=== PATIENT | male | born 1990 | race Caucasian/White ===

== ENCOUNTER 2016-08-11 11:00 | Inpatient (IN) | payer OTHER ==
--- NOTE | ~2016-08-11 | HP ---
Unit #: [id number] #: [id number] Patient: LETI LÓPEZ [id number] [place] [address] [id number] MR#: [id number] NAME: LETI LÓPEZ ROOM: P209 Age: 25 Sex: M Admission Date: 08/11/2016 : 1990 Attending Physician: Jamari Platt M.D. Admitting Physician: Jamari Platt M.D. Primary Care Physician: Primary Care Physician No HISTORY AND PHYSICAL HISTORY OF PRESENT ILLNESS Leti is a 25 year old admitted to [address] [place] [address] because of his drug use which includes methamphetamine. 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 PAST SURGICAL HISTORY Thyroglossal cyst resected at 1 years old. ALLERGIES Penicillin, Keflex. SOCIAL HISTORY He smokes 1 pack per day. Denies alcohol. Admits to a history of illicit substance abuse to include methamphetamine. FAMILY HISTORY Medically noncontributory. REVIEW OF SYSTEMS CONSTITUTIONAL: No fever or chills. HEENT: Denies any sore throat, ear pain or runny nose. CARDIOVASCULAR: Denies chest pain, irregular heart rhythm or palpitations. CHEST: Denies shortness of breath or cough. No hemoptysis. GASTROINTESTINAL: Denies nausea, vomiting, diarrhea or chronic constipation. ENDOCRINE: Denies history of increased thirst or urination. No recent significant weight loss or gain. GENITOURINARY: Denies dysuria, frequency, or hematuria. SKIN: Denies any rashes. HEMATOLOGIC: Denies history of increased bleeding or bruising. MUSCULOSKELETAL: Denies any hot, swollen joints. No generalized muscle pain. NEUROLOGIC: Denies problems with vision or speech. No frequent, severe headaches. No numbness, tingling or weakness in any extremities. Denies loss of bladder or bowel control. CURRENT MEDICATIONS 1. Risperdal 0.5 mg q.h.s. 2. Wellbutrin SR 100 mg q.a.m. 3. Zyprexa 10 mg q. 6 hours p.r.n. 4. Milk of Magnesia p.r.n. Unit #: [id number] #: [id number] Patient: LETI LÓPEZ 5. Maalox p.r.n. 6. Tylenol p.r.n. PHYSICAL EXAMINATION GENERAL: Alert, well-nourished, in no apparent distress. VITAL SIGNS: Blood pressure 124/82, heart rate 80, respirations 16, temperature 98.6. WEIGHT: 165. HEIGHT: 6 feet 2 inches. SKIN: Warm and dry without rash or lesion. HEENT: Normocephalic. TMs not viewed. Oral and nasal passages clear. Conjunctivae clear. PERRLA. EOMs intact. NECK: Supple without lymphadenopathy or thyromegaly. HEART: Regular rate and rhythm without murmur. LUNGS: Clear. ABDOMEN: Soft, nontender. : Not done. EXTREMITIES: No evidence of cyanosis, clubbing or edema. Moves all without focal deficit. NEUROLOGICAL: Grossly within normal limits. Cranial Nerves: II: Visual cho are intact. III, IV AND : Extraocular movements are intact. Pupils are equal, round and reactive to light. V: Facial sensation is grossly normal. VII: Facial movements and expression are normal. VIII: Auditory acuity grossly intact. IX, X: Uvula is midline. Phonation is normal. XI: Patient shrugs shoulders and turns head normally. XII: Tongue protrudes in the midline. Sensory and Motor Function: Sensory and motor sensation is grossly normal. Motor: moves all extremities well. Coordination: Gait is normal. Deep Tendon Reflexes: Intact. IMPRESSION Psychiatric admission. RECOMMENDATIONS PSYCHIATRIC: Per psychiatrist. MEDICAL: See no contraindications to participate in facility's activities. MEDICAL PROGNOSIS Good. MEDICAL CONDITION Stable. Dictated by... Olga Sheth P.A.-C. for aRul Matthew/chace TD: 08/12/2016 15:41 JOB #: [id number] Unit #: [id number] #: [id number] Patient: LETI LÓPEZ HISTORY AND PHYSICAL Page 1 of 1 X Olga Sheth HISTORY AND PHYSICAL
--- NOTE | ~2016-08-11 | PA ---
Unit #: [id number] #: [id number] Patient: LETI LÓPEZ [id number] [place] [address] [id number] MR#: [id number] NAME: LETI LÓPEZ ROOM: P209 Age: 25 Sex: M Admission Date: 08/11/2016 : 1990 Date of Assessment: Attending Physician: Jamari Platt M.D. Admitting Physician: Jamari Platt M.D. Primary Care Physician: Primary Care Physician No PSYCHIATRIC ASSESSMENT LOCATION [facility] [address], room #209, bed #2. INFORMANTS The patient and chart, both seem reliable. CHIEF COMPLAINT "I've got to take care of myself." HISTORY OF PRESENT ILLNESS This is a 25-year-old white male with a longstanding history of substance abuse including stimulants and marijuana as well as major depressive symptoms. The patient apparently has had thoughts of harming himself in the past, even initially to the client evaluator, who brought him in. The patient made reference to being better off pulling his brains out or some other form of graphic suicide attempt. Today, the patient is still reporting significant depression, but denies any active SI. He does admit to regular amphetamine abuse, but he was vague on the amounts as well as daily marijuana. The patient has been in treatment multiple times with poor compliance and followup care. He reports now motivation to be there for his 4-year-old child whose birthday apparently was yesterday, on the day of his admission. The patient had himself brought here by friends from [facility] to get care. The patient has been in places such as [facility] in the past, but has never been followed up with any outpatient care before. The patient denied any regular abuse of alcohol, benzodiazepines, but he did admit to taking his Xanax yesterday to calm him down before he came in. Overall, the patient still seems very depressed, hopeless, and at risk. PAST PSYCHIATRIC HISTORY As noted above. Various psychiatric admissions at other facilities throughout the [facility]. No outpatient care currently or current medications in terms of treatment. The patient has been on various psychiatric medications, but has never seen that any of them have true benefits. The patient claims to have a history of ADHD, does have a history of suicidal ideation. Denied any suicidal actions previously. FAMILY HISTORY Significant for widespread mood disorders as well as possible chemical dependency. SOCIAL HISTORY The patient is single and unemployed, limited support network. Unit #: [id number] #: [id number] Patient: LETI LÓPEZ MEDICAL HISTORY Nothing of significance. MEDICATION HISTORY None. ALLERGIES Include penicillin and Keflex. SUBSTANCE ABUSE HISTORY As noted above. No history of complications in terms of seizures or medical ICU care. MENTAL STATUS EXAMINATION General appearance; this is a limitedly groomed white male, appears older than stated age. Fairly cooperative. Good eye contact. Speech was clear and coherent. Mood was depressed with a blunted affect. Thought process and content were grossly organized and linear. No overt evidence of psychosis. Positive for SI, but no HI. No clear plan at this time. The patient's memory was grossly intact. Associations were normal. Cognitive function was at baseline. He is alert and oriented x4. Insight and judgment are poor. ASSETS AND LIABILITIES Assets include previous exposure to treatment as well as some recognition of need for improvement. Liabilities include poor support, unemployed, very limited resources. ADMITTING DIAGNOSES 1. Major depressive disorder, recurrent, severe without psychotic features. 2. Stimulant dependency. 3. Marijuana abuse versus dependency. PSYCHIATRIC PLAN Continue the patient's admission for safety and stabilization for ongoing issues with severe depression, the suicidal thoughts and chemical dependency comorbid issues. The patient has been started on Wellbutrin SR 100 mg daily by mouth to help with depression, needs Risperdal 0.5 mg at bedtime for sleep and mood stabilization. The patient is to be monitored for any withdrawal issues, but since drug abuse or stimulants to be negligible. The patient was encouraged to go to groups and activities. Standard p.r.n.'s and labs have been ordered. Treatment goal will be resolution of symptoms in safe controlled environment with discharge planning most likely requiring community resources in his home area. ESTIMATED LENGTH OF STAY Approximately 4 to 5 days depending on the patient's progress and response to treatment. Dictated by... Raul Roe/arash Unit #: [id number] #: [id number] Patient: LETI LÓPEZ TD: 08/13/2016 03:11 JOB #: [id number] PSYCHIATRIC ASSESSMENT Page 1 of 1 X Jamari Platt MD PSYCHIATRIC ASSESSMENT
--- NOTE | ~2016-08-11 | PN ---
Unit #: [id number] #: [id number] Patient: LETI LÓPEZ [id number] [facility] [address] [place] [address] [id number] MR#: [id number] NAME: LETI LÓPEZ ROOM: P209 Age: 25 Sex: M Admission Date: 08/11/2016 : 1990 Attending Physician: Jamari Platt M.D. Admitting Physician: Jamari Platt M.D. Primary Care Physician: Primary Care Physician Chiara WALKER PROGRESS NOTES DATE 08/13/2016 SUBJECTIVE UPDATE This is a 25-year-old male here with ongoing issues with depression of severe nature with vague suicidal ideation. Patient reports sleeping well overnight, somewhat fatigued today but is tolerating the Wellbutrin and Risperdal well. Still reports mood is depressed but SI is improving. No clear plan or desire today. Patient denied any additional issues. MENTAL STATUS EXAMINATION General appearance is a limitedly groomed white male fairly isolative to self, moderate eye contact. Speech was clear and coherent but brief. Mood was depressed but improving with a congruent affect. Thought process and content are grossly organized, linear. No overt evidence of psychosis. SI is improving. No plan or desire today. Patient's memory was grossly intact. Associations are normal. Cognitive functioning was at baseline. He was alert and oriented times four. Insight and judgement is improving. RECOMMENDATIONS Will continue patient's admission for safety and stabilization. Depression is showing good progress with treatment but still needs time for further stabilization and resolution in a safe, controlled fashion. Will likely shoot for disposition soon if progress is continued. Dictated by... Jamari Platt M.D. DC/chace TD: 08/13/2016 18:20 JOB #: [id number] Unit #: [id number] #: [id number] Patient: LETI LÓPEZ PROGRESS NOTES Page 1 of 1 X Jamari Platt MD X PROGRESS NOTE
--- NOTE | ~2016-08-11 | DS ---
Unit #: [id number] #: [id number] Patient: LETI LÓPEZ [id number] [facility] [address] [place] [address] [id number] MR#: [id number] NAME: LETI LÓPEZ ROOM: P209 Age: 25 Sex: M Admission Date: 08/11/2016 : 1990 Discharge Date: Attending Physician: Jamari Platt M.D. Primary Care Physician: Primary Care Physician No DISCHARGE SUMMARY REASON FOR ADMISSION Severe depression with suicidal ideation and comorbid chemical dependency issues. DIAGNOSTIC STUDIES PERTINENT LABORATORY DATA: The patient had routine blood work done which included a CMP that was within normal parameters with the exception of glucose of 111 and BUN of 8, and otherwise it was normal. CBC was well within normal parameters. Urine tox showed positive for benzos and marijuana which was in keeping with this account. The rest of urinalysis was within normal parameters. HOSPITAL COURSE The patient was admitted for safety and stabilization for issues with severe depression and comorbid substance abuse. The patient was started on Wellbutrin SR 100 mg a day by mouth and Risperdal 0.5 mg in the evening. Both refer to mood and stabilization. The patient had reported issues with racing thoughts, thoughts of wanting to kill himself, vague reference to hallucinations, and/or other psychotic symptoms of a command nature. Overall, the patient's symptoms rapidly progressed and improved over the course of the hospitalization. He was fairly isolative to himself through much of the admission and seemed to be going through amphetamine withdrawal in terms of sedation, but overall had no overt symptoms of substance withdrawal beyond that. Vital signs remain stable, and the patient tolerated medication change without side effect. Overall, the patient was fairly pleasant, is isolative, and cooperative with care. At the time of discharge, the patient was denying any acute mood issues as he was much more positive and energetic. He is sleeping well with no active SI. No thoughts of dying. No hallucinations. Overall, it was felt the patient had reached maximum benefit from admission and was discharged home to his home area of [place]. Would follow up with his primary care doctor. DISCHARGE DIAGNOSES 1. Major depressive disorder, recurrent, with psychotic features. 2. The stimulant dependency. 3. Marijuana abuse. DISCHARGE INSTRUCTIONS Followup is with the patient's primary care doctor and therapist in his home area of [place] as well as with the general community resources. DISCHARGE MEDICATIONS 1. Risperdal 0.5 mg at bedtime for mood stabilization and depression as Unit #: [id number] #: [id number] Patient: LETI LÓPEZ well as psychotic symptoms. 2. Wellbutrin SR 100 mg (1) ___ depression. CONDITION AT DISCHARGE Improved. PROGNOSIS Guarded given the patient's history of poor compliance and substance abuse. DISCHARGE DIET Regular. DISCHARGE ACTIVITY As tolerated with sobriety and compliance encouraged. Dictated by... Jamari Platt M.D. DC/omer TD: 08/14/2016 11:12 JOB #: [id number] DISCHARGE SUMMARY Page 1 of 1 X Jamari Platt MD X DISCHARGE SUMMARY
[2016-08-12 10:09] LABS: URINE APPEARANCE CLOUDY; URINE BILIRUBIN NEG (NEG); URINE BLOOD NEG (NEG); URINE COLOR YELLOW; URINE GLUCOSE NORM (NORM); URINE KETONE NEG (NEG); URINE LEUKOCYTE ESTERASE NEG (NEG); URINE NITRATE NEG (NEG); URINE PROTEIN NEG (NEG); URINE SPECIFIC GRAVITY 1.015 (1.003-1.035); URINE UROBILINOGEN NORM (NORM)
[2016-08-12 10:23] LABS: ALBUMIN SERUM 3.7 g/dL (3.5-5.0); BILIRUBIN,TOTAL 0.9 mg/dL (0.2-2.0); BUN/CREATININE RATIO 11.42; CREATININE SERUM 0.7 mg/dL (0.6-1.4); GLOM FILT RATE Estimated 129.4 mL/min (>60); POTASSIUM 4.1 mmol/L (3.5-5.1); PROTEIN TOTAL SERUM 6.1 g/dL (6.0-8.3)
[2016-08-12 11:34] LABS: AMPHETAMINE NEG (NEG); BARBITURATES NEG (NEG); BENZODIAZEPINES POS (NEG); COCAINE NEG (NEG); MARIJUANA POS (NEG); OPIATES NEG (NEG); TRICYCLIC ANTIDEPRESSANTS NEG (NEG); U METHADONE NEG (NEG)
[2016-08-13 09:42] LABS: BASOPHIL# 0.1 X10e3 (0-0.3); BASOPHIL% 1.1 % (0-2.5); EOSINOPHIL# 0.3 X10e3 (0-0.7); EOSINOPHIL% 4.7 % (0.0-7.0); HEMATOCRIT 45.3 % (38.0-50.0); HEMOGLOBIN 14.9 gm/dL (13.0-16.0); MEAN CELL VOLUME 93.7 FL (83-96); MEAN CORPUSCULAR HEMOGLOBIN 30.9 PG (28-34); MEAN PLATELET VOLUME 9.2 FL (6.5-11.5); MONOCYTE# 0.7 X10e3 (0-1.0); NEUTROPHIL# 3.5 X10e3 (1.5-7.1); NEUTROPHIL% 53.2 % (40-75); PLATELET COUNT 256 X10e3 (140-420); RED BLOOD COUNT 4.84 X10e (3.90-5.60); RED CELL DISTRIBUTION WIDTH 13.3 % (11.0-15.5); WHITE BLOOD COUNT 6.6 X10e3 (4.0-10.5)
[2016-08-13 10:06] LABS: DIFF IND NO
== END 2016-08-14 12:47 | disposition home or self-care (01) | DRG 885 ==
LOC: P2S 15:44
PROVIDERS: Psychiatry & Neurology Psychiatry
DX: F33.3 Major depressive disorder, recurrent, severe with psychotic symptoms (principal); F15.20 Other stimulant dependence, uncomplicated; R45.851 Suicidal ideations; F12.20 Cannabis dependence, uncomplicated; Z88.0 Allergy status to penicillin; Z88.8 Allergy status to other drugs, medicaments and biological substances; Z81.8 Family history of other mental and behavioral disorders; Z81.4 Family history of other substance abuse and dependence; F17.210 Nicotine dependence, cigarettes, uncomplicated
CPT/HCPCS: 80053; 80307; 81003; 85025